=== PATIENT | female | born 1970 | race Two or more races ===

== ENCOUNTER 2024-10-25 17:56 | Emergency (ER) | payer MEDICAID ==
[~2024-10-25] VITALS: Ht 162.6 cm; Wt 54.4 kg
[2024-10-25] MEDS ORDERED: LIDOCAINE 5% (PATCH) 1 EA PATCH TP ONE (18:58)
[2024-10-25] MEDS ORDERED: KETOROLAC TROMETHAMINE INJ 30 MG/ML VIAL ONE (18:58)
[2024-10-25] MEDS ORDERED: diphenhydrAMINE HCL 50 MG/ML VIAL ONE ×2 (19:45→19:46)
[2024-10-25] MEDS ORDERED: OLANZAPINE 5 MG TABLET ONE (19:46)
[2024-10-25] MEDS: OLANZAPINE 5 MG TABLET PO ONE (19:55)
[2024-10-25] MEDS: diphenhydrAMINE HCL 50 MG/ML VIAL IV ONE (20:00)
[2024-10-25] MEDS: IV NS 0.9% 1,000 ML BAG IV ONE (20:00)
[2024-10-25 20:16] LABS: BASOPHILS # (AUTO) 0.1 K/uL (0.0-0.2); BASOPHILS % (AUTO) 0.9 % (0.0-2.0); EOSINOPHILS % (AUTO) 0.2 % (0.0-6.0); HEMATOCRIT 42 % (33-45); LYMPHOCYTES # (AUTO) 1.2 K/uL (0.8-4.8); LYMPHOCYTES % (AUTO) 18.3 % (20.0-44.0); MEAN CORPUSCULAR HEMOGLOBIN 29 PG (26.0-33.0); MEAN CORPUSCULAR HGB CONC 33 g/dl (31.0-36.0); MEAN CORPUSCULAR VOLUME 87 fL (82-100); MONOCYTES # (AUTO) 0.2 K/uL (0.1-1.30); MONOCYTES % (AUTO) 2.5 % (2.0-12.0); NEUTROPHILS % (AUTO) 78.1 % (43.0-81.0); PLATELET COUNT (AUTO) 239 K/uL (150-450); RED BLOOD CELL COUNT(AUTO) 4.83 MIL/uL (4.0-5.2); RED CELL DISTRIBUTION WIDTH 15.1 % (11.5-15.0); WHITE BLOOD COUNT (AUTO) 6.4 K/uL (4.3-11.0)
[2024-10-25 20:30] LABS: CALCIUM, SERUM 9.7 mg/dL (8.5-10.1); CARBON DIOXIDE 35 mmol/L (21-32); CHLORIDE 102 mmol/L (98-107); CREATININE 0.6 mg/dL (0.6-1.3); GLUCOSE 122 mg/dL (74-106); POTASSIUM 3.7 mmol/L (3.5-5.1); SODIUM SERUM 139 mmol/L (136-145); UREA NITROGEN, BLOOD 9 mg/dL (7-18)
[2024-10-25 20:36] LABS: ALANINE AMINOTRANSFERASE 46 U/L (12-78); ALBUMIN 1.8 g/dL (3.4-5.0); ALKALINE PHOSPHATASE 95 U/L (46-116); ASPARTATE AMINOTRANSFERASE 41 U/L (15-37); BILIRUBIN,DIRECT 0.1 mg/dL (0.0-0.2); BILIRUBIN,TOTAL 0.4 mg/dL (0.2-1.0); TOTAL PROTEIN, SERUM 8.4 g/dL (6.4-8.2)
[2024-10-25 20:38] LABS: ACETAMINOPHEN <10 ug/ml (10-30); ALCOHOL, BLOOD < 3 mg/dL (0-10); SALICYLATE 0.8 mg/dL (2.8-20.0)
[2024-10-25] MEDS ORDERED: ONDA4TAB5 PO (21:05)
[2024-10-25] MEDS ORDERED: IBUP-1490 PO (21:05)
[2024-10-25 21:27] VITALS: BP 110/74; TEMP 97.9; O2SAT 99
== END 2024-10-25 21:20 | disposition home or self-care (01) ==
LOC: ER 18:00
DX: R51.9 Headache, unspecified (principal); F20.9 Schizophrenia, unspecified; Z20.822 Contact with and (suspected) exposure to COVID-19
CPT/HCPCS: 99283; 96374; 96361; 85025; 80048; 80076; 36415; 87426; 80143; 80320; J1200 ×2; J1885; J7030; G0480